=== PATIENT | female | born 1950 | race Caucasian/White ===

== ENCOUNTER 2019-10-28 11:20 | Outpatient (CLI) | payer MEDICARE, SELFPAY ==
--- NOTE | ~2019-10-28 | XR_ITS ---
EXAMINATION: XR abdomen/kub 1V EXAM DATE: 10/28/2019 11:43 INDICATION: Kidney stone. TECHNIQUE: Frontal projection(s) of the abdomen for interpretation. Correlation is made to CT abdomen pelvis same date. FINDINGS: Bilateral nephrolithiasis identified. Bladder is moderately distended. Pelvic calcificatio ns probably phleboliths but correlate with CT report. Nonobstructive bowel gas pattern. Mild bony deg enerative changes. IMPRESSION: Bilateral nephrolithiasis. Reviewed, dictated and finalized at location A. IMPRESSION: Bilateral nephrolithiasis.
--- NOTE | ~2019-10-28 | CT_ITS ---
EXAMINATION: CT abdomen pelvis wo con DATE: 10/28/2019 11:59 INDICATION: Bilateral flank pain. Calculus of kidney. TECHNIQUE: Computed tomography (CT) of the abdomen and pelvis was performed without intravenous contr ast. Automated exposure control and iterative reconstruction technique were employed. The dose-length product was 412.15 mGy-cm. COMPARISON: None. FINDINGS: The visualized portions of the lung bases demonstrate mild atelectasis. No pleural effusion . The heart size is normal. No pericardial effusion. There is diffuse hepatic steatosis. The gallblad jo ann, spleen, pancreas, and adrenal glands are normal. There is cortical thinning of the kidneys. Ther e are greater than 10 stones in right kidney measuring up to 6 mm. There are greater than 10 stones i n left kidney measuring up to 6 mm. There is diverticulosis of the colon without evidence of divertic ulitis. There are no dilated loops of bowel. The appendix is normal. There are no pathologically enla rged lymph nodes. There is no free intraperitoneal fluid. There is severe lower lumbar spondylosis. IMPRESSION: 1. Bilateral nonobstructing kidney stones. Reviewed, dictated and finalized at location A.
== END 2019-10-28 11:21 | disposition home or self-care (01) ==
PROVIDERS: PCP Internal Medicine; Visit Provider Nurse Practitioner Adult Health
DX: N20.0 Calculus of kidney (principal)
CPT/HCPCS: 74018; 74176

== ENCOUNTER 2020-02-15 15:20 | Outpatient (CLI) | payer MEDICARE, SELFPAY ==
--- NOTE | ~2020-02-15 | XR_ITS ---
XR abdomen/kub 1V DATE: 02/15/2020 15:38 INDICATION: Intermittent abdominal pain. Bilateral renal stones. TECHNIQUE: AP projection, 2 views COMPARISON: 02/28/[address] abdomen pelvis FINDINGS: There are bilateral renal calcifications consistent with bilateral nephrolithiasis document : 10/28/[address] abdomen pelvis examination. Approximate 4.5 x 12 mm calcification overlies the right renal pelvis. Bilateral calcified pelvic phleboliths. No obvious calcification of either ureter noted. The psoas shadows are intact. No visceromegaly is evident. There are some gas containing small bowel segments overlying the left mid-upper abdomen which suggest mild adynamic ileus. No bowel obstruction is evident. IMPRESSION: Bilateral nephrolithiasis Mild left mid to upper abdominal adynamic ileus is suggested Reviewed, dictated and finalized at Location A. Reviewed, dictated and finalized at location A. 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
== END 2020-02-15 15:21 | disposition home or self-care (01) ==
PROVIDERS: PCP Urology; Visit Provider Nurse Practitioner Adult Health
DX: N20.0 Calculus of kidney (principal)
CPT/HCPCS: 74018

== ENCOUNTER 2020-03-13 10:52 | Outpatient (CLI) | payer MEDICARE, SELFPAY ==
--- NOTE | ~2020-03-13 | XR_ITS ---
XR abdomen/kub 1V DATE: 03/13/2020 11:21 INDICATION: Bilateral renal stones TECHNIQUE: AP projection, 2 views COMPARISON: 02/15/2020 KUB 7 5206/[address] abdomen pelvis FINDINGS: There are multiple bilateral calcifications overlying the renal silhouettes, particularly n umerous on the right. There are bilateral likely calcified pelvic phleboliths, stable since 0. No obvious ureteral calcification is noted. The psoas shadows are intact. No visceromegaly is evident. No evidence of bowel obstruction. Bilateral iliolumbar ligament ossification. IMPRESSION: Bilateral nephrolithiasis. Reviewed, dictated and finalized at Location A. Reviewed, dictated and finalized at location A. 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
== END 2020-03-13 10:53 | disposition home or self-care (01) ==
PROVIDERS: Visit Provider Nurse Practitioner Adult Health
DX: N20.0 Calculus of kidney (principal)
CPT/HCPCS: 74018

== ENCOUNTER 2020-04-06 11:44 | Outpatient (CLI) | payer MEDICARE, SELFPAY ==
--- NOTE | ~2020-04-06 | XR_ITS ---
EXAMINATION: XR abdomen/kub 1V INDICATION: Bilateral kidney stones TECHNIQUE: Supine views of the abdomen were obtained on 2 radiographs. COMPARISON: 03/13/2020 FINDINGS: There are multiple stones of the right kidney which measure up to 6 mm in the lower pole. M ultiple stones are identified in the left kidney which measure up to 4 mm in the upper pole. No stone s are identified along the expected courses of the ureters or within the bladder. Multiple pelvic phl eboliths are noted. There is moderate bilateral hip osteoarthritis. The bowel gas pattern is normal. IMPRESSION: 1. Stable bilateral nephrolithiasis. Reviewed, dictated and finalized at location A. 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
== END 2020-04-06 11:45 | disposition home or self-care (01) ==
PROVIDERS: Visit Provider Urology
DX: N20.0 Calculus of kidney (principal)
CPT/HCPCS: 74018

== ENCOUNTER 2020-08-31 13:55 | Outpatient (CLI) | payer MEDICARE, SELFPAY ==
--- NOTE | ~2020-08-31 | XR_ITS ---
XR abdomen/kub 1V 08/31/2020 14:13 Indication: Renal stones Procedure: KUB Comparison: Comparison to multiple prior studies sequentially, with oldest reviewed study dated 10/28/2019. Findings: There are multiple bilateral renal stones. There are pelvic phleboliths. Gas pattern nonobs tructive. No acute osseous abnormality. Lung bases unremarkable. Impression: 1: No significant change to bilateral nephrolithiasis. Reviewed, dictated and finalized at location A. Impression: 1: No significant change to bilateral nephrolithiasis.
== END 2020-08-31 13:56 | disposition home or self-care (01) ==
LOC: ANHIMG 14:01
PROVIDERS: Visit Provider Urology
DX: N20.0 Calculus of kidney (principal)
CPT/HCPCS: 74018

== ENCOUNTER 2020-12-07 10:29 | Outpatient (CLI) | payer MEDICARE, SELFPAY ==
--- NOTE | 2020-12-07 10:38 | ECG_ITS ---
Measurements Intervals Evans Rate: 60 P: 55 TN: 179 QRS: -1 QRSD: 84 T: 30 QT: 394 QTc: 396 Interpretive Statements SINUS RHYTHM INCOMPLETE RIGHT BUNDLE BRANCH BLOCK DELAYED PRECORDIAL R/S TRANSITION LOW QRS VOLTAGE IN PRECORDIAL LEADS BASELINE ARTIFACT- I, III, AVR, AVL BORDERLINE ECG Electronically Signed On 12-07-2020 11:10:02 CDT by Leighton Wellington D.O.
[2020-12-07 11:09] LABS: INR 0.9; Partial Thromboplastin Time 24.7 SECONDS (22.3-36.8); Prothrombin Time 12.3 Seconds (11.1-14.7)
== END 2020-12-07 10:30 | disposition home or self-care (01) ==
LOC: ANHSURGERY 10:33
PROVIDERS: Visit Provider Urology
DX: Z01.818 Encounter for other preprocedural examination (principal); N20.0 Calculus of kidney; E78.00 Pure hypercholesterolemia, unspecified; I45.10 Unspecified right bundle-branch block; R94.31 Abnormal electrocardiogram [ECG] [EKG]
CPT/HCPCS: 36415; 85610; 85730; 87086; 87088; 93005

== ENCOUNTER 2020-12-07 11:36 | Outpatient (CLI) | payer MEDICARE, SELFPAY ==
--- NOTE | ~2020-12-07 | XR_ITS ---
EXAMINATION: XR abdomen/kub 1V EXAM DATE: 12/07/2020 11:58 INDICATION: Bilateral kidney stones. TECHNIQUE: Frontal projection(s) of the abdomen for interpretation. Comparison is made to prior exami nation from 08/31/2020. FINDINGS: Multiple bilateral kidney stones measuring up to about 5 mm each. Similar appearance on pr ior study. There are mild bony degenerative changes. Nonobstructive bowel gas pattern. IMPRESSION: Bilateral nephrolithiasis Reviewed, dictated and finalized at location B. IMPRESSION: Bilateral nephrolithiasis
== END 2020-12-07 11:37 | disposition home or self-care (01) ==
LOC: ANHIMG 11:39
PROVIDERS: Visit Provider Nurse Practitioner Adult Health
DX: N20.0 Calculus of kidney (principal)
CPT/HCPCS: 36415; 74018; 85610; 85730; 87086; 87088; 93005

== ENCOUNTER 2020-12-15 01:39 | Day surgery (SDC) | payer MEDICARE, SELFPAY ==
[2020-12-04 15:35] VITALS: BMI 33.1
[2020-12-15] VITALS (11 sets, daily range): BP systolic 102–128; BP diastolic 49–88; PULSE 58–70; RESP 12–16; TEMP 36.2–36.4; O2SAT 93–99
--- NOTE | ~2020-12-15 | XR_ITS ---
EXAMINATION: XR abdomen/kub 1V DATE: 12/15/2020 08:04 INDICATION: Kidney stones. TECHNIQUE: A supine view of the abdomen on 2 radiographs was obtained. COMPARISON: CT abdomen and pelvis 10/28/2019 FINDINGS: There are no dilated loops of bowel. There are phleboliths in the pelvis. There are greater than 10 stones in right kidney measuring up to 6 mm. There are at least 7 stones in left kidney tai uring up to 4 mm. IMPRESSION: 1. Bilateral kidney stones. Reviewed, dictated and finalized at location A. IMPRESSION: 1. Bilateral kidney stones.
--- NOTE | 2020-12-15 06:49 | WPDANESEPPF ---
Anes - Initial Pre Proc Eval Procedure: Operation Date: 12/15/20 10:00 Proposed Procedures p Left Renal Extracorporeal Shock Wave Lithotripsy - Jah Patel MD Date/Time: 12/15/20 06:49 Surgeon: Jah Patel MD Pre Op Diagnosis: left renal stone Patient Data Age: 70 Gender: F Height: 1.65 m Weight: 90.45 kg Allergies Allergy/AdvReac Type Severity Reaction Status Date / Time codeine AdvReac Hives Verified 12/15/20 08:19 levofloxacin AdvReac Nausea and Verified 12/15/20 08:19 Vomiting tetracycline AdvReac Hives, Verified 12/15/20 08:19 SWELLING Home Medications Medication Instructions Recorded Confirmed Type acetaminophen [Tylenol Extended 650 mg PO Q8H PRN 12/04/20 12/15/20 History Release] alprazolam 0.5 mg TID 12/04/20 12/15/20 History bupropion HCl 150 mg PO DAILY 12/04/20 12/15/20 History cholecalciferol (vitamin D3) 50 mcg PO HS 12/04/20 12/15/20 History coenzyme Q10 [Co Q-10] 100 mg PO HS 12/04/20 12/15/20 History diphenoxylate-atropine [Lomotil] 1 tablet PRN PRN 12/04/20 12/04/20 History loperamide [Imodium] 2 mg PO DAILY 12/04/20 12/15/20 History mirtazapine 7.5 mg HS 12/04/20 12/04/20 History omeprazole 20 mg DAILY 12/04/20 12/15/20 History propranolol 10 mg TID 12/04/20 12/15/20 History simvastatin 40 mg HS 12/04/20 12/15/20 History Patient hx anesthesia problems: post op nausea/vomiting Family hx anesthesia problems: none PMFSH Past Medical History Medical History (Updated 12/15/20 @ 06:55 by Kiel Madera DO) Anxiety Depression GERD (gastroesophageal reflux disease) Hyperlipidemia IBS (irritable bowel syndrome) BRYANNA (obstructive sleep apnea) Palpitations PONV (postoperative nausea and vomiting) Surgical History Surgical History (Updated 12/15/20 @ 06:55 by Kiel Madera DO) History of hysterectomy History of tonsillectomy Social History Social History Smoking packs per day: 0.5 Smoking cigarettes per day: 10.0 Years smoked: 20 Smoking pack-years: 10.00 Smoking status: Former smoker Tobacco type: cigarettes Additional smoking assessment comments: QUIT 1988 Alcohol intake: never Substance use: never Substance use type: does not use Living arrangements: with family Spiritual care concerns: No Anes - Eval Final PreProcedure Day of Procedure 12/15/20 06:49 Patient weight: obese Heart: regular rate and rhythm Lungs: clear to auscultation and normal air movement Airway: Mallampati scale class II Neurological: alert and oriented Last oral intake: >/= 8 hours ASA classification: III Emergent: no Anesthetic plan: proceed Anesthesia type and monitoring: general LMA and standard monitoring Informed Consent: The patient's anesthetic plan and its attendant risks and benefits were discussed with the patient/family/POA. Questions were solicited and answers provided to the satisfaction of the patient/family/POA.
--- NOTE | 2020-12-15 07:09 | WPDHPUPDATE1 ---
History and Physical Update Update Date/Time: 12/15/20 07:09 History and Physical has been reviewed, including an updated exam of the patient. There are NO changes in the patient's condition. Risks, benefits, and alternatives have been discussed and questions answered. Patient agrees to proceed with procedure.
[2020-12-15] MEDS: LACTATED RINGERS 1,000 ML 30 ML IV CONT (08:56)
[2020-12-15] MEDS: SCOPOLAMINE 1.5 MG PATCH TRANSDERM (09:42)
[2020-12-15] MEDS: FAMOTIDINE 20 MG/2 ML VIAL IV PUSH (09:43)
[2020-12-15] MEDS: ceFAZolin 2 GM/D5W 50 ML 2 GM/50 ML BAG IVPB (10:29)
--- NOTE | 2020-12-15 10:55 | W.PM.PROC2 ---
Procedure Note - Detailed Date of Procedure 12/15/20 Pre-op Diagnosis Left renal stone Post-op Diagnosis same Procedure Performed Left ESWL Surgeon Jah Patel MD Anesthesia general Description of Procedure The patient was brought to the operative suite where she was placed in the supine position on the Dornier lithotripsy table. The focal point of the lithotripter was placed at a 6mm left upper pole calculus. A total of 2100 shocks were delivered at a power setting of 4. A smaller mid-pole stone was treated with 400 shocks. There appeared to be good fragmentation of the stone. The patient tolerated the procedure well and was taken to the recovery room in good condition. Estimated Blood Loss 0 Drains No Packing No Pathology none sent Complications No immediate complications Condition stable Disposition PACU
[2020-12-15] MEDS: fentaNYL CITRATE INJ (*CRX) 100 MCG/2 ML VIAL 25 MCG IV PUSH ×2 (11:26→11:39)
[2020-12-15] MEDS: ONDANSETRON INJ 4 MG/2 ML VIAL IV PUSH (13:29)
== END 2020-12-15 14:15 | disposition home or self-care (01) ==
PROVIDERS: Visit Provider Urology
PROC: (CPT 50590; principal; 2020-12-15 10:00)
DX: N20.0 Calculus of kidney (principal); E78.5 Hyperlipidemia, unspecified; G47.33 Obstructive sleep apnea (adult) (pediatric); K58.9 Irritable bowel syndrome, unspecified; K21.9 Gastro-esophageal reflux disease without esophagitis; F41.8 Other specified anxiety disorders; Z87.891 Personal history of nicotine dependence; E66.9 Obesity, unspecified; Z68.32 Body mass index [BMI] 32.0-32.9, adult
CPT/HCPCS: 50590; 74018; A9270; J0690; J2405; J3010; J7120

== ENCOUNTER 2020-12-18 15:29 | Outpatient (CLI) | payer MEDICARE, SELFPAY ==
--- NOTE | ~2020-12-18 | XR_ITS ---
EXAMINATION: XR abdomen/kub 1V INDICATION: Calculus of the kidney TECHNIQUE: Supine views of the abdomen were obtained on 2 radiographs. COMPARISON: 12/15/2020 FINDINGS: There are multiple unchanged stones of the right kidney which measure up to 7 mm. Multiple stable stones are also noted in the right kidney which measure up to 4 mm. There are phleboliths of t he pelvis. No stones are identified along the expected courses of the ureters. There is mild osteoart hritis of the hips. The bowel gas pattern is normal. IMPRESSION: 1. Bilateral nephrolithiasis. Reviewed, dictated and finalized at location A.
== END 2020-12-18 15:30 | disposition home or self-care (01) ==
LOC: ANHIMG 15:33
PROVIDERS: Visit Provider Urology
DX: N20.0 Calculus of kidney (principal)
CPT/HCPCS: 74018

== ENCOUNTER 2021-06-15 13:36 | Outpatient (CLI) | payer MEDICARE, SELFPAY ==
--- NOTE | ~2021-06-15 | XR_ITS ---
EXAMINATION: XR abdomen/kub 1V INDICATION: Microscopic hematuria TECHNIQUE: Supine views of the abdomen were obtained on 2 radiographs. COMPARISON: 12/18/2020 FINDINGS: There are multiple stones of the kidneys which appear unchanged since the comparison examin ation. Phleboliths are noted in the pelvis. The bowel gas pattern is normal. No stones are identified in the expected locations of the ureters or urinary bladder. IMPRESSION: 1. Bilateral nephrolithiasis. Reviewed, dictated and finalized at location B. 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
--- NOTE | ~2021-06-15 | CT_ITS ---
EXAMINATION: CT abdomen pelvis wo/w con DATE: 06/15/2021 14:27 INDICATION: Microscopic hematuria TECHNIQUE: Computed tomography (CT) of the abdomen and pelvis was performed without intravenous contr ast. CT of the abdomen and pelvis was then performed with a total of 130 mL Omnipaque 350 intravenous contrast using a double-bolus technique for simultaneous opacification of the renal parenchyma and r enal collecting system. The dose-length product (DLP) was 2138.56 mGy-cm. Automated exposure control and iterative reconstruction technique were employed. COMPARISON: 10/28/2019 FINDINGS: Minimal dependent atelectasis is present in the lung bases. The heart size is normal. There is a 1.5 cm cyst of the liver dome. The spleen, pancreas, gallbladder, and adrenal glands are normal . There are multiple nonobstructing stones of the left kidney (greater than 10) which measure up to 8 mm. There are multiple nonobstructing stones of the right kidney (greater than 10) which measure up to 9 mm. There are no stones in the ureters or bladder. There is a 2.6 cm cyst of the left kidney low er pole. There is mild bilateral hydroureter continuing to the level of the ureterovesicular junction without obstructing stone or urothelial lesion identified. No pathologically enlarged abdominal or p elvic lymph nodes are identified. There is no free intraperitoneal gas or evidence of bowel obstructi on. Colonic diverticulosis is present without evidence of diverticulitis. There is severe lumbar spon dylosis. IMPRESSION: 1. Bilateral nonobstructing nephrolithiasis. 2. Mild bilateral hydroureter continuing to the level of the ureterovesicular junction without obstru cting stone or urothelial lesion identified. Significance unclear. Reviewed, dictated and finalized at location B. 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 Bilateral nonobstructing nephrolithiasis. 2. Mild bilateral hydroureter continuing to the level of the ureterovesicular j unction without obstructing stone or urothelial lesion identified. Significance unclear.
[2021-06-15 14:12] LABS: Estimated Glomerular Filt Rate 49
== END 2021-06-15 13:37 | disposition home or self-care (01) ==
PROVIDERS: Visit Provider Nurse Practitioner Adult Health
DX: R31.29 Other microscopic hematuria (principal); N20.0 Calculus of kidney
CPT/HCPCS: 74018; 74178; Q9967

== ENCOUNTER 2021-07-18 13:47 | Outpatient (CLI) | payer MEDICARE, SELFPAY ==
--- NOTE | ~2021-07-18 | NM_ITS ---
EXAMINATION: SUKH dent renal scan DATE: 07/18/2021 15:16 INDICATION: Bilateral hydronephrosis. TECHNIQUE: 8.1 mCi Tc-99m MAG3 was administered IV. 40 mg furosemide was administered IV immediately afterward. The patient was scanned in the supine position. A posterior abdominal radionuclide angiog gen was obtained. A subsequent time course of static images of the kidneys, ureters, and bladder was obtained. COMPARISON: CT abdomen and pelvis 06/15/2021 FINDINGS: The posterior abdominal radionuclide angiogram and sequential static images show normal siz e, position, and morphology of the kidneys. Peak renal parenchymal uptake was 2 min in right kidney a nd 2 min in left kidney (normal peak 3-5 minutes). The relative early renal uptake was 50% on the ri ght and 50% on the left (<40% is abnormal). No abnormalities of the ureters or bladder are seen. T1/2 for clearance of activity from the right kidney and proximal collecting system was 12 minutes. T1/2 for clearance of activity from the left kidney and proximal collecting system was 8 minutes. IMPRESSION: 1. Symmetric kidney function. 2. Mildly delayed contrast clearance from right kidney, consistent with low grade obstruction of ques tionable clinical significance. 3. No delay in contrast clearance from left kidney to suggest fixed obstruction. Reviewed, dictated and finalized at location A. IMPRESSION: 1. Symmetric kidney function. 2. Mildly delayed contrast clearance from right kidney, consistent with low gra de obstruction of questionable clinical significance. 3. No delay in contrast clearance from left kidney to suggest fixed obstructio n.
== END 2021-07-18 13:48 | disposition home or self-care (01) ==
PROVIDERS: Visit Provider Nurse Practitioner Adult Health
DX: N13.30 Unspecified hydronephrosis (principal)
CPT/HCPCS: 78708; A9562; J1940

== ENCOUNTER 2021-08-03 12:24 | Outpatient (CLI) | payer MEDICARE, SELFPAY ==
[2021-08-03 13:07] LABS: Prothrombin Time 12.9 Seconds (11.1-14.7)
[2021-08-03 13:08] LABS: Partial Thromboplastin Time 25.4 SECONDS (22.3-36.8)
== END 2021-08-03 12:25 | disposition home or self-care (01) ==
LOC: ANHSURGERY 12:28
PROVIDERS: Visit Provider Urology
DX: N20.0 Calculus of kidney (principal); Z01.818 Encounter for other preprocedural examination
CPT/HCPCS: 36415; 85610; 85730; 87086; 87088

== ENCOUNTER 2021-08-10 01:18 | Day surgery (SDC) | payer MEDICARE, SELFPAY ==
[2021-08-01 10:01] VITALS: BMI 33.3
--- NOTE | 2021-08-01 10:10 | PC.NURSE ---
Report to the Outpatient Waiting Room, entrance under the green pavilion located off [facility], at time _1145_ on date _08/10/21_. OR Time: _1:45 PM_. - You and your visitor will be asked a series of questions to screen for COVID 19 for your protection. - A mask is required within the hospital. One visitor will be allowed to accompany the patient into the hospital. Patients visitor will be instructed to remain with patient at all times or leave the building. We will allow the visitor to come back to the postoperative area when patient is ready. Preoperative COVID Testing Requirements: NONE Patients may have clear liquids (water, carbonated beverages, clear teas, apple juice) until 3 hours prior to surgery (1045 AM) with a maximum of 20 ounces. - No food from midnight until time of surgery Take the following medications with a SIP of water the morning of surgery: _ALPRAZOLAM, PROPRANOLOL, PAIN MED IF NEEDED_ Medications to discontinue per ANESTHESIA - VITAMINS AND SUPPLEMENTS - 3 DAYS PRIOR TO SURGERY, Date to take last dose 08/06/21_ Please no make-up, nail romanian, hairspray, perfume, deodorant, or body powder the day of surgery. No jewelry (including any body piercings) or valuables the day of surgery, leave them at home. Please take a shower or bath the night before, or the morning of, surgery with an antibacterial soap. Wear comfortable, loose fitting clothing. Children are encouraged to wear pajamas. - Jewelry must be removed prior to entering the operating room. Rings and piercings that are not removed may be cut off. - The hospital will not accept responsibility for valuables. - Please leave all valuables, including medications, at home the day of surgery. If you are going home after surgery, a licensed city route driver must drive you home. - NO public transportation without another adult. - We recommend that an adult stay with you for 24 hours following discharge. - We also recommend that you do not drive, make important decision, drink alcoholic beverages, or take any drugs that were not prescribed by your health care provider for at least 24 hours after your discharge time. Follow any additional instructions given to you from your surgeon. Telephone instructions given to ____PT and asked if any additional questions and then verbalized understanding. Patient advised to call surgeon office or pre surgery nurse liaison [phone] if any additional questions.
--- NOTE | 2021-08-03 07:44 | PM.HPGS ---
History of Present Illness History of Present Illness Consent: Risks, benefits, and alternatives have been discussed and questions answered. Patient agrees to proceed with procedure. Chief complaint: bilateral renal stone Narrative: Iqra Vazquez is a 70 year old female who's has had multiple episodes of renal and ureteral calculi in the past. She is status post ESWL in December 2020. She has residual stones in his opted for left ESWL. She is aware the risk including, but not limited to, perinephric hematoma, hematuria and persistent stones. Review of Systems Cardiovascular: Cardiovascular: Denies chest pain, Denies lightheadedness, Denies palpitations and Denies dyspnea Respiratory: Respiratory: Denies dyspnea Gastrointestinal: Gastrointestinal: Denies diarrhea, Denies nausea and Denies vomiting Genitourinary: Genitourinary: Denies hematuria and Denies dysuria Endocrine: Endocrine: Denies palpitations PMFSH Past Medical History Medical History Anxiety Depression GERD (gastroesophageal reflux disease) Hyperlipidemia IBS (irritable bowel syndrome) BRYANNA (obstructive sleep apnea) Palpitations PONV (postoperative nausea and vomiting) Surgical History Surgical History History of hysterectomy History of tonsillectomy Social History Social History Smoking packs per day: 0.5 Smoking cigarettes per day: 10.0 Years smoked: 20 Smoking pack-years: 10.00 Smoking status: Former smoker Tobacco type: cigarettes Second hand tobacco smoke exposure: No Additional smoking assessment comments: QUIT 1989 Alcohol intake: never Substance use: never Substance use type: does not use Spiritual care concerns: No Meds Home Medications and Allergies Home Medications Medication Instructions Recorded Confirmed Type acetaminophen 650 mg PO Q8H PRN 12/04/20 08/01/21 History alprazolam 0.5 mg TID 12/04/20 08/01/21 History cholecalciferol (vitamin D3) 50 mcg PO HS 12/04/20 08/01/21 History coenzyme Q10 [Co Q-10] 100 mg PO HS 12/04/20 08/01/21 History diphenoxylate-atropine [Lomotil] 1 tablet PRN PRN 12/04/20 08/01/21 History loperamide 2 mg PO DAILY 12/04/20 08/01/21 History mirtazapine 15 mg HS 12/04/20 08/01/21 History omeprazole 20 mg DAILY 12/04/20 08/01/21 History propranolol 10 mg TID 12/04/20 08/01/21 History simvastatin 40 mg HS 12/04/20 08/01/21 History hydrocodone-acetaminophen 1 - 2 tablet PO Q6H PRN #20 tablet 12/15/20 08/01/21 Rx ondansetron 8 mg PO Q8H PRN #14 tablet 12/15/20 08/01/21 Rx nitrofurantoin monohyd/m-cryst 100 mg BID 08/01/21 08/01/21 History Allergies Allergy/AdvReac Type Severity Reaction Status Date / Time codeine AdvReac Hives Verified 08/01/21 09:56 levofloxacin AdvReac Nausea and Verified 08/01/21 09:56 Vomiting tetracycline AdvReac Hives, Verified 08/01/21 09:56 SWELLING Exam Const: General: no acute distress Resp: Effort & Inspection: normal respiratory effort GI: Inspection: non-distended GI Palp: No abdominal tenderness and No Guarding due to palpation present (GI) Auscultation: normal bowel sounds
--- NOTE | 2021-08-09 14:12 | P.PNAN_ITS ---
Anes - Eval Pre Procedure Procedure: Operation Date: 08/10/21 13:45 Proposed Procedures p Left Extracorporeal Shock Wave Lithotripsy - Jah Patel MD Date/Time: 08/09/21 14:12 Pre Op Diagnosis: bilateral renal stone Patient Data Age: 70 Gender: F Height: 1.65 m Weight: 90.9 kg Allergies Allergy/AdvReac Type Severity Reaction Status Date / Time codeine AdvReac Hives Verified 08/01/21 09:56 levofloxacin AdvReac Nausea and Verified 08/01/21 09:56 Vomiting tetracycline AdvReac Hives, Verified 08/01/21 09:56 SWELLING Home Medications Medication Instructions Recorded Confirmed Type acetaminophen 650 mg PO Q8H PRN 12/04/20 08/01/21 History alprazolam 0.5 mg TID 12/04/20 08/01/21 History cholecalciferol (vitamin D3) 50 mcg PO HS 12/04/20 08/01/21 History coenzyme Q10 [Co Q-10] 100 mg PO HS 12/04/20 08/01/21 History diphenoxylate-atropine [Lomotil] 1 tablet PRN PRN 12/04/20 08/01/21 History loperamide 2 mg PO DAILY 12/04/20 08/01/21 History mirtazapine 15 mg HS 12/04/20 08/01/21 History omeprazole 20 mg DAILY 12/04/20 08/01/21 History propranolol 10 mg TID 12/04/20 08/01/21 History simvastatin 40 mg HS 12/04/20 08/01/21 History hydrocodone-acetaminophen 1 - 2 tablet PO Q6H PRN #20 tablet 12/15/20 08/01/21 Rx ondansetron 8 mg PO Q8H PRN #14 tablet 12/15/20 08/01/21 Rx nitrofurantoin monohyd/m-cryst 100 mg BID 08/01/21 08/01/21 History Patient hx anesthesia problems: none Family hx anesthesia problems: none Results Review: All pre-operative results and documents have been reviewed as part of the pre-operative evaluation. [facility] Past Medical History Medical History Anxiety Depression GERD (gastroesophageal reflux disease) Hyperlipidemia IBS (irritable bowel syndrome) BRYANNA (obstructive sleep apnea) Palpitations PONV (postoperative nausea and vomiting) Surgical History Surgical History History of hysterectomy History of tonsillectomy Social History Social History Smoking packs per day: 0.5 Smoking cigarettes per day: 10.0 Years smoked: 20 Smoking pack-years: 10.00 Smoking status: Former smoker Tobacco type: cigarettes Second hand tobacco smoke exposure: No Additional smoking assessment comments: QUIT 1988 Alcohol intake: never Substance use: never Substance use type: does not use Spiritual care concerns: No Exam Day of Procedure 08/09/21 14:12 Patient weight: obese
[2021-08-10] VITALS (9 sets, daily range): BP systolic 106–119; BP diastolic 52–62; PULSE 60–77; RESP 14–18; TEMP 36.2–36.5; O2SAT 92–100
--- NOTE | ~2021-08-10 | XR_ITS ---
EXAMINATION: XR abdomen/kub 1V INDICATION: Nephrolithiasis TECHNIQUE: Supine views of the abdomen were obtained on 2 radiographs. COMPARISON: 06/15/2021 FINDINGS: There are multiple stones throughout the right kidney. The largest measures 6 mm in the low er pole. There are several stones in the mid and upper left kidney and one punctate stone in the lowe r pole of the left kidney. The largest left kidney stone measures 5 mm in the upper pole. No stones a re identified along the expected courses of the ureters or bladder. Phleboliths are noted in the pelv is. There is moderate osteoarthritis of the hips. The bowel gas pattern is normal. IMPRESSION: 1. Bilateral nephrolithiasis. Reviewed, dictated and finalized at location B.
--- NOTE | 2021-08-10 06:33 | WPDHPUPDATE1 ---
History and Physical Update Update Date/Time: 08/10/21 06:33 History and Physical has been reviewed, including an updated exam of the patient. There are NO changes in the patient's condition. Risks, benefits, and alternatives have been discussed and questions answered. Patient agrees to proceed with procedure.
[2021-08-10] MEDS: LACTATED RINGERS 1,000 ML 30 ML IV CONT ×2 (12:24→14:31)
--- NOTE | 2021-08-10 12:31 | P.PNAN_ITS ---
Anes - Eval Final PreProcedure Day of Procedure 08/10/21 12:31 Patient weight: obese Heart: regular rate and rhythm Lungs: clear to auscultation Airway: Mallampati scale class II Neurological: alert and oriented Last oral intake: >/= 8 hours ASA classification: III Emergent: no Anesthetic plan: proceed Anesthesia type and monitoring: general and standard monitoring Results Review: All pre-operative results and documents have been reviewed as pa rt of the pre-operative evaluation. Informed Consent: The patient's anesthetic plan and its attendant risks and benefits were discussed with the patient/family/POA. Questions were solicited and answers provided to the satisfaction of the patient/family/POA.
--- NOTE | 2021-08-10 12:38 | WPDANESEPPF ---
Anes - Initial Pre Proc Eval Procedure: Operation Date: 08/10/21 13:45 Proposed Procedures p Left Extracorporeal Shock Wave Lithotripsy - Jah Patel MD Date/Time: 08/10/21 12:38 Surgeon: Jah Patel MD Pre Op Diagnosis: bilateral renal stone Patient Data Age: 70 Gender: F Height: 1.65 m Weight: 92.6 kg Last Vital Signs Temp 36.5 C 08/10/21 12:09 Pulse 75 08/10/21 12:09 Resp 16 08/10/21 12:09 BP 119/60 08/10/21 12:09 Pulse Ox 100 08/10/21 12:09 Allergies Allergy/AdvReac Type Severity Reaction Status Date / Time codeine AdvReac Hives Verified 08/10/21 12:02 levofloxacin AdvReac Nausea and Verified 08/10/21 12:02 Vomiting tetracycline AdvReac Hives, Verified 08/10/21 12:02 SWELLING Home Medications Medication Instructions Recorded Confirmed Type acetaminophen 650 mg PO Q8H PRN 12/04/20 08/10/21 History alprazolam 0.5 mg TID 12/04/20 08/10/21 History cholecalciferol (vitamin D3) 50 mcg PO HS 12/04/20 08/10/21 History coenzyme Q10 [Co Q-10] 100 mg PO HS 12/04/20 08/10/21 History diphenoxylate-atropine [Lomotil] 1 tablet PRN PRN 12/04/20 08/10/21 History loperamide 2 mg PO DAILY 12/04/20 08/10/21 History mirtazapine 15 mg HS 12/04/20 08/10/21 History omeprazole 20 mg DAILY 12/04/20 08/10/21 History propranolol 10 mg TID 12/04/20 08/10/21 History simvastatin 40 mg HS 12/04/20 08/10/21 History hydrocodone-acetaminophen 1 - 2 tablet PO Q6H PRN #20 tablet 12/15/20 08/10/21 Rx ondansetron 8 mg PO Q8H PRN #14 tablet 12/15/20 08/10/21 Rx nitrofurantoin monohyd/m-cryst 100 mg BID 08/01/21 08/10/21 History Patient hx anesthesia problems: none Family hx anesthesia problems: none Results Review: All pre-operative results and documents have been reviewed as part of the pre-operative evaluation. [facility] Past Medical History Medical History Anxiety Depression GERD (gastroesophageal reflux disease) Hyperlipidemia IBS (irritable bowel syndrome) BRYANNA (obstructive sleep apnea) Palpitations PONV (postoperative nausea and vomiting) Surgical History Surgical History History of hysterectomy History of tonsillectomy Social History Social History Smoking packs per day: 0.5 Smoking cigarettes per day: 10.0 Years smoked: 20 Smoking pack-years: 10.00 Smoking status: Former smoker Tobacco type: cigarettes Second hand tobacco smoke exposure: No Additional smoking assessment comments: QUIT 1988 Alcohol intake: never Substance use: never Substance use type: does not use Living arrangements: with family Spiritual care concerns: No Anes - Eval Final PreProcedure Day of Procedure 08/10/21 12:38 Patient weight: obese Heart: regular rate and rhythm Lungs: clear to auscultation Airway: Mallampati scale class II Neurological: alert and oriented Last oral intake: >/= 8 hours ASA classification: III Emergent: no Anesthetic plan: proceed Anesthesia type and monitoring: general LMA and standard monitoring Results Review: All pre-operative results and documents have been reviewed as part of the pre-operative evaluation. Informed Consent: The patient's anesthetic plan and its attendant risks and benefits were discussed with the patient/family/POA. Questions were solicited and answers provided to the satisfaction of the patient/family/POA.
--- NOTE | 2021-08-10 14:18 | W.PM.PROC2 ---
Procedure Note - Detailed Date of Procedure 08/10/21 Pre-op Diagnosis Bilateral renal stone Post-op Diagnosis Same Procedure Performed Left ESWL Surgeon Jah Patel MD Anesthesia General Description of Procedure The patient was brought to the operative suite where she was placed in the supine position on the Dornier lithotripsy table. The focal point of the lithotripter was placed at a first a 5-6mm left upper pole calculus. A total of 1700 shocks were delivered at a power setting of 4. In a similar fashion we delivered 700 shocks to a 3-4mm left mid-pole stone. There appeared to be good fragmentation of the stone. The patient tolerated the procedure well and was taken to the recovery room in good condition. Estimated Blood Loss 0 Drains No Packing Yes Pathology Yes Complications No immediate complications Condition Stable Disposition PACU
[2021-08-10] MEDS: fentaNYL CITRATE INJ (*CRX) 100 MCG/2 ML VIAL 25 MCG IV PUSH ×2 (15:05→15:08)
[2021-08-10] MEDS: MEPERIDINE HCL INJ (*CRX) 50 MG/ML AMPUL 25 MG IV PUSH (15:21)
[2021-08-10] MEDS: ONDANSETRON INJ 4 MG/2 ML VIAL IV PUSH (15:52)
[2021-08-10] MEDS: traMADol HCL (*CRX) 50 MG TABLET PO (16:36)
== END 2021-08-10 17:00 | disposition home or self-care (01) ==
PROVIDERS: Visit Provider Urology
PROC: (CPT 50590; principal; 2021-08-10 13:45)
DX: N20.0 Calculus of kidney (principal); F41.8 Other specified anxiety disorders; K21.9 Gastro-esophageal reflux disease without esophagitis; E78.5 Hyperlipidemia, unspecified; K58.9 Irritable bowel syndrome, unspecified; G47.33 Obstructive sleep apnea (adult) (pediatric); R00.2 Palpitations; Z87.891 Personal history of nicotine dependence; E66.9 Obesity, unspecified; Z68.34 Body mass index [BMI] 34.0-34.9, adult
CPT/HCPCS: 50590; 36415; 74018; 85610; 85730; 87086; 87088; A9270; J1100; J2175; J2405; J2704; J3010; J7120

== ENCOUNTER 2021-09-06 12:59 | Outpatient (CLI) | payer MEDICARE, SELFPAY ==
--- NOTE | ~2021-09-06 | XR_ITS ---
EXAMINATION: XR abdomen/kub 1V DATE: 09/06/2021 13:25 INDICATION: Bilateral kidney stones. TECHNIQUE: A supine view of the abdomen on 2 radiographs was obtained. COMPARISON: Abdomen radiographs 08/10/2021, CT abdomen and pelvis 06/15/2021 FINDINGS: There are no dilated loops of bowel. There are greater than 10 stones in right kidney measu ring up to 5 mm. There are least 6 stones in left kidney measuring up to 5 mm. There are phleboliths in the pelvis. IMPRESSION: 1. Bilateral kidney stones. Reviewed, dictated and finalized at location A. IMPRESSION: 1. Bilateral kidney stones.
== END 2021-09-06 13:00 | disposition home or self-care (01) ==
PROVIDERS: Visit Provider Nurse Practitioner Adult Health
DX: N20.0 Calculus of kidney (principal)
CPT/HCPCS: 74018

== ENCOUNTER 2021-11-16 12:38 | Outpatient (CLI) | payer MEDICARE, SELFPAY ==
--- NOTE | ~2021-11-16 | US_ITS ---
US renal BI 11/16/2021 13:19 Procedure: Realtime transabdominal ultrasound of the kidneys and bladder. Indication: Bilateral hydronephrosis. Comparison: CT dated 06/15/2021 Findings: There are bilateral echogenic foci centrally located in the kidneys with areas of posterior shadowing, consistent with a nonobstructing renal stones. No hydronephrosis. There is a 2.5 cm left renal cyst. Bladder is unremarkable. The right kidney measures 10.7 cm and left kidney measures 11.9 cm. Bladder within normal limits. Impression: 1: Bilateral echogenic foci of the kidneys with posterior shadowing, consistent with nonobstructing n ephrolithiasis. Reviewed, dictated and finalized at location A. Impression: 1: Bilateral echogenic foci of the kidneys with posterior shadowing, consistent with nonobstructing nephrolithiasis.
== END 2021-11-16 12:39 | disposition home or self-care (01) ==
PROVIDERS: Visit Provider Nurse Practitioner Family
DX: N13.30 Unspecified hydronephrosis (principal)
CPT/HCPCS: 76775

== ENCOUNTER 2022-09-05 15:13 | Emergency (ER) | payer MEDICARE, SELFPAY ==
[2022-09-05 15:25] VITALS: BP 124/62; PULSE 67; RESP 16; TEMP 36.8; O2SAT 98
[2022-09-05 15:26] VITALS: BP 124/62; PULSE 67; RESP 16; TEMP 36.8; O2SAT 98
--- NOTE | 2022-09-05 15:46 | ED.GENADULT ---
HPI - General Adult General Chief complaint: Urogenital-Female Stated complaint: uti,diarrhea Time Seen by Provider: 09/05/22 15:35 Source: patient and RN notes reviewed Mode of arrival: ambulatory Limitations: no limitations History of Present Illness HPI narrative: Patient presents today complaining of urinary frequency x2 days. Denies any additional urinary symptoms to include dysuria, hematuria, urgency. States she does have, ?a bunch of stones will but denies flank pain. She is also complaining of diarrhea for the past 2 days, 2-3 times per day. She has had 2 episodes today. Describes the stool as loose. Denies blood or mucus in the stool. She had some nausea yesterday, but none today. Denies vomiting or abdominal pain. States she took half an Imodium twice yesterday without relief. States she has some Lomotil at home but has not tried it. She is requesting a new prescription. Related Data Home Medications Medication Instructions Recorded Confirmed acetaminophen 650 mg 650 mg PO Q8H PRN PAIN/FEVER 12/04/20 08/10/21 tablet,extended release alprazolam 0.5 mg tablet 0.5 mg TID 12/04/20 08/10/21 cholecalciferol (vitamin D3) 25 50 mcg PO HS 12/04/20 08/10/21 mcg (1,000 unit) capsule coenzyme Q10 100 mg capsule (Co 100 mg PO HS 12/04/20 08/10/21 Q-10) diphenoxylate-atropine 2.5 1 tablet PRN PRN Diarrhea 12/04/20 08/10/21 mg-0.025 mg tablet (Lomotil) loperamide 2 mg capsule 2 mg PO DAILY 12/04/20 08/10/21 mirtazapine 7.5 mg tablet 15 mg HS 12/04/20 08/10/21 omeprazole 20 mg capsule,delayed 20 mg DAILY 12/04/20 08/10/21 release propranolol 10 mg tablet 10 mg TID 12/04/20 08/10/21 simvastatin 40 mg tablet 40 mg HS 12/04/20 08/10/21 Allergies Allergy/AdvReac Type Severity Reaction Status Date / Time codeine AdvReac Hives Verified 09/05/22 15:24 levofloxacin AdvReac Nausea and Verified 09/05/22 15:24 Vomiting tetracycline AdvReac Hives, Verified 09/05/22 15:24 SWELLING Review of Systems Review of Systems: CONSTITUTIONAL: Denies body aches, fever, chills, or sweats. EYES: Denies visual changes, redness, or discharge. ENT: Denies rhinorrhea, congestion, sore throat, or otalgia. CARDIOVASCULAR: Denies chest pain, palpitations, or edema. RESPIRATORY: Denies cough or dyspnea. GASTROINTESTINAL: Denies abdominal pain, vomiting.+ nausea, diarrhea GENITOURINARY: Denies dysuria or hematuria.+ frequency SKIN: Denies rash, itching, or wounds. MUSCULOSKELETAL: Denies back pain, joint pain, or myalgia. NEUROLOGIC: Denies headache, numbness, tingling, or weakness. PSYCH: Denies depression or anxiety. PMFSH Past Medical History Medical History Anxiety Depression GERD (gastroesophageal reflux disease) Hyperlipidemia IBS (irritable bowel syndrome) BRYANNA (obstructive sleep apnea) Palpitations PONV (postoperative nausea and vomiting) Surgical History Surgical History History of hysterectomy History of tonsillectomy Social History Social History Smoking packs per day: 0.5 Smoking cigarettes per day: 10.0 Years smoked: 20 Smoking pack-years: 10.00 Smoking status: Former smoker Tobacco type: cigarettes Second hand tobacco smoke exposure: No Additional smoking assessment comments: QUIT 1988 Alcohol intake: never Substance use: never Substance use type: does not use Living arrangements: with family Spiritual care concerns: No Comments At time of signature, I have reviewed and agree with nursing past medical, surgical, social and family history unless otherwise noted. Please see nursing chart for further information. There is no relevant family history pertinent to the presenting complaint Exam Narrative: GENERAL: Well-appearing, well-nourished, and in no acute distress. HEA
== END 2022-09-05 16:04 | disposition home or self-care (01) ==
PROVIDERS: Emergency Provider Nurse Practitioner; PCP Urology
DX: N39.0 Urinary tract infection, site not specified (principal); R19.7 Diarrhea, unspecified; Z87.891 Personal history of nicotine dependence; K21.9 Gastro-esophageal reflux disease without esophagitis; E78.5 Hyperlipidemia, unspecified; F41.9 Anxiety disorder, unspecified
CPT/HCPCS: 81003; 87086; 99213; G0463